=== PATIENT | female | born 1945 | race Two or more races ===

== ENCOUNTER → 2017-07-07 | Outpatient (CLI) | payer BC ==
--- NOTE | 2017-07-07 21:38 | RADRPT ---
PROCEDURE: Left knee radiographs. CLINICAL INDICATION: Left knee pain. TECHNIQUE: Four views. Weight bearing. Frontal, lateral, oblique, and patellar view. COMPARISON: No prior studies are available for comparison. FINDINGS: There is no fracture or dislocation. The soft tissues are normal. There are degenerative changes with osteophytes arising from all 3 joint compartment margins. There is medial joint compartment narrowing. There is no lytic or blastic lesion. There is no radiopaque foreign body. IMPRESSION: 1. Moderate degenerative changes predominately involving the medial joint compartment. 2. Otherwise unremarkable images of the left knee. RPTAT: QQ .Chun Garner MD, MD Date Time Electronically viewed and signed by .Chun Garner MD, MD on 07/07/2017 21:37 .R/
--- NOTE | 2017-07-08 07:30 | HKNOTE ---
DATE OF SERVICE: 07/07/2017 CHIEF COMPLAINT: Left knee pain. HISTORY OF PRESENT ILLNESS: This is a 71-year-old female complaining of chronic left knee pain. Sh e states that the pain has been worsening over the last year. She does not use any assistive device s. She does not take any pain medications. She has not had any previous treatment. She denies any groin or back pain. She denies any history of trauma. The pain is mostly on the inside of her lef t knee. There is no radiation. It is alleviated by rest, aggravated by walking. GAIT: Nonantalgic gait, reciprocal gait pattern. LEFT KNEE EXAMINATION: Neutral alignment. Tender over the medial joint line, nontender over the la teral joint line, 0 to 120 degrees range of motion, stable to varus valgus stress, negative Soheila, negative anterior drawer, negative posterior drawer, negative Cosme's. MOTOR STRENGTH: 5/5 hamstrings, quadriceps, tibialis anterior, gastrocsoleus. X-RAYS, LEFT KNEE: 3 views of the left knee demonstrate tricompartmental osteoarthritis of the left knee with decreased joint space and [id number] arthritic changes. IMPRESSION: A 71-year-old female with left knee osteoarthritis. PLAN: I discussed treatment options with the patient. At this time, we will request authorization for outpatient physical therapy. I also discussed weight loss with the patient. She can take over- the-counter ibuprofen or Tylenol for pain. She will follow up as needed in the future. I also disc ussed with her the need for knee replacement in the future. All questions were answered to her sati sfaction. Dictated By: BEAN VAUGHN/AKASH Conf#: [id number] DID#: [id number]
== END | disposition home or self-care (01) ==
LOC: HKI 08:55
PROVIDERS: ATTEND Orthopaedic Surgery Adult Reconstructive Orthopaedic Surgery
DX: M17.12 Unilateral primary osteoarthritis, left knee (principal)
CPT/HCPCS: 73564; Z7500; G0463